=== PATIENT | male | born 1970 | race Caucasian/White ===

== ENCOUNTER → 2017-01-26 | Outpatient (CLI) | payer OTHER ==
--- NOTE | ~2017-01-26 | CT3 ---
[facility] A Service of [facility] & [facility] RADIOLOGY TEXT RESULTS PATIENT: MARCUS STALLINGS LOCATION: [facility] : 68 UNIT #: [id number] AGE: [address]: YULIANA NOYOLA APRN SEX: M ORDER DR: [id number] [facility] [address] [place], [place] [address] [id number] O MR#: [id number] Acc #: [id number] NAME: MARCUS STALLINGS : 1970 SEX: M STUDY DATE/TIME: 01/26/2017 10:57 UNIT: [facility] ROOM: STUDY DESCRIPTION: CT Abd and Pelv WWo Cont Attending Physician: Yuliana Noyola Np Referring Physician: Yuliana Noyola Np Ordering Physician: Yuliana Noyola Np Primary Care Physician: Yuliana Noyola Np MEDICAL IMAGING REPORT This report is preliminary unless electronic signature is present EXAM CT abdomen and pelvis with and without contrast 01/26/2017 HISTORY Hematuria. Right flank pain. Hematuria for 4 days. History of kidney stones. TECHNIQUE CT abdomen and pelvis performed before and after administration of 100 mL Isovue-370. Postcontrast arterial venous and delayed phase imaging performed. This CT exam was performed with one or more of the following radiation dose reduction techniques: Automatic exposure control, adjustment of mA and/or kV according to patient size, and iterative reconstruction. COMPARISON 05/07/2012 FINDINGS The lung bases are clear. The inferior heart and pericardium are unremarkable. Liver unremarkable. Status post cholecystectomy. No biliary obstruction. Spleen, pancreas, adrenal glands unremarkable. Preliminary noncontrast enhanced imaging through kidneys shows no nephrolithiasis. No hydronephrosis or hydroureter and no ureteral calculi. Postcontrast enhanced imaging of the kidneys shows a tiny subcapsular cyst posterior mid right kidney unchanged from prior study. No suspicious renal findings. The opacified ureters are unremarkable on the delayed phase images. The urinary bladder is unremarkable. CT PELVIS: No inguinal adenopathy. The prostate is unremarkable in appearance. There is no free fluid in the pelvis. There is no pelvic or retroperitoneal adenopathy. Esophagus, stomach, small bowel, appendix, colon unremarkable. The aorta appears normal in caliber. Celiac axis is STS. [facility] A Service of [facility] & [facility] RADIOLOGY TEXT RESULTS PATIENT: MARCUS STALLINGS LOCATION: [facility] : [birth year] UNIT #: [id number] AGE: [address]: YULIANA NOYOLA APRN SEX: M ORDER DR: patent. Superior mesenteric artery, bilateral single renal arteries, inferior mesenteric artery, and visualized iliofemoral arterial tree unremarkable. The bony structures show degenerative change in spine. No acute-appearing bony abnormality. IMPRESSION 1. No renal calculi or obstruction. No solid renal mass lesion. Cause for patient's hematuria unclear on basis of this examination. Urology consultation recommended. 2. The opacified ureters on delayed phase imaging are unremarkable. The urinary bladder is unremarkable. 3. Post cholecystectomy. 4. Alimentary canal including appendix unremarkable. See remainder of ancillary findings in body of report above. STAT * RESULT Dictated by... Moshe Houston M.D. THIS IS AN ELECTRONICALLY VERIFIED REPORT Moshe Houston M.D. at 01/27/2017 7:35 AM JULIA/jael TD: 01/26/2017 13:57 JOB #: [id number] MEDICAL IMAGING REPORT Page 1 of 1 COPY
[2017-01-26 14:56] LABS: POC - CREATININE 1.05 mg/dL (0.64-1.27); POC - GFR >60.0 mL/min (>60)
== END | disposition home or self-care (01) ==
LOC: CCAT 09:20
PROVIDERS: Nurse Practitioner
DX: R31.9 Hematuria, unspecified (principal); M54.5 Low back pain; N28.89 Other specified disorders of kidney and ureter; Z90.49 Acquired absence of other specified parts of digestive tract
CPT/HCPCS: 74178; 82565; Q9967

== ENCOUNTER 2017-02-15 13:17 | Emergency (ER) | payer OTHER ==
[~2017-02-15] VITALS: Ht 182.9 cm; Wt 94.8 kg
--- NOTE | ~2017-02-15 | CR21 ---
[facility] A Service of [facility] & [facility] RADIOLOGY TEXT RESULTS PATIENT: MARCUS STALLINGS LOCATION: [facility] : [birth year] UNIT #: [id number] AGE: [address]: Allen Martin SEX: M ORDER DR: [id number] [facility] [address] [place], [place] [address] [id number] MR#: [id number] Acc #: [id number] NAME: MARCUS STALLINGS : 1970 SEX: M STUDY DATE/TIME: 02/15/2017 UNIT: [facility] ROOM: STUDY DESCRIPTION: CR Ankle Min 3 Views Rt Attending Physician: Allen Martin R.N. Ordering Physician: Allen Martin R.N. Primary Care Physician: Yuliana Noyola Np MEDICAL IMAGING REPORT This report is preliminary unless electronic signature is present EXAM Right ankle 02/15/2017 1343 hours. HISTORY 46-year-old man who rolled his ankle while walking today. Ankle swelling and pain laterally. COMPARISON None. FINDINGS AP, lateral and oblique views demonstrate marked lateral soft tissue swelling over the distal fibula. No acute fracture is seen. There is no dislocation. There is a moderate sized plantar calcaneal spur. IMPRESSION Marked lateral soft tissue swelling over the distal fibula with no acute fracture or dislocation. Dictated by... Bing Lane M.D. THIS IS AN ELECTRONICALLY VERIFIED REPORT Bing Lane M.D. at 02/16/2017 9:03 AM [place] TD: 02/15/2017 14:50 JOB #: [id number] MEDICAL IMAGING REPORT Page 1 of 1 COPY
== END 2017-02-15 14:36 | disposition home or self-care (01) ==
LOC: CFTX 13:17 → CED 13:17 → CFTX 14:04
DX: S93.401A Sprain of unspecified ligament of right ankle, initial encounter (principal); Z79.899 Other long term (current) drug therapy; W10.8XXA Fall (on) (from) other stairs and steps, initial encounter; Y92.009 Unspecified place in unspecified non-institutional (private) residence as the place of occurrence of the external cause
CPT/HCPCS: 29540; 73610; 99283